=== PATIENT | male | born 1980 | race Caucasian/White ===

== ENCOUNTER 2017-12-02 22:28 | Inpatient (IN) | payer BC, OTHER ==
[~2017-12-02] VITALS: Ht 193 cm; Wt 93.0 kg
--- NOTE | ~2017-12-02 | H ---
[facility] [place] [address] HISTORY AND PHYSICAL Name: JUAN GARCIA Reanna Room #: 444-P ADM IN M.R.#: [id number] Admission: 12/03/17 Attend Phys: Eleno Acevedo MD Discharge: Date of : 82 Report #: [id number] THIS REPORT FOR: //name// CC: FAM unknown Eleno Acevedo DATE OF SERVICE: 12/03/2017 ATTENDING PHYSICIAN: Dr. Grace. PRIMARY CARE PHYSICIAN: Kelly Peraza. CHIEF COMPLAINT: Abdominal pain. HISTORY OF PRESENT ILLNESS: The patient is a 37-year-old male who initially presented to [facility] with abdominal pain. He states the pain started Sunday night. He said he had difficulty sleeping throughout the night because of some epigastric pain. Prior to that, he had eaten, had a shrimp boil and had some corn, potatoes and sausage. He says the pain persisted throughout the night and Sunday morning and progressively got worse throughout the day. He did try to eat a few times throughout the day on Sunday, but it would cause increasing pain. The pain started in the epigastric area, but this has started radiating around to his right flank area. He did have some nausea, but denies any vomiting, denies any fevers or chills, denies diarrhea. He had a normal bowel movement yesterday. He has had similar episodes with pancreatitis in the past. He states he was told previously that his pancreatitis was related to his diabetes. He was initially evaluated at [facility] and had a small mass noted on his pancreas, so he was transferred here for further GI evaluation. PAST MEDICAL HISTORY: Hypertension, diabetes, reflex sympathetic dystrophy due to a crush injury in the right lower extremity. PAST SURGICAL HISTORY: Right foot repair after a crush injury. ALLERGIES: DILAUDID CAUSES ITCHING AND RASH; MORPHINE NAUSEA AND VOMITING; PENICILLIN, UNKNOWN REACTION; ZOLOFT CAUSES INCREASED BLOOD SUGAR; AND NOVOLOG AND HUMALOG INSULIN CAUSE SHORTNESS OF AIR AND . HOME MEDICATIONS: Benadryl p.r.n., losartan 25 mg p.o. daily, tramadol 50-100 mg q. 6-8 hours p.r.n. pain, Tylenol p.r.n., Lantus insulin 10-12 units t.i.d., and Apidra insulin 10-12 units t.i.d. SOCIAL HISTORY: The patient denies any tobacco, alcohol or drug use. He lives with his girlfriend. FAMILY HISTORY: His father is alive with prostate cancer. [place] [address] HISTORY AND PHYSICAL Name: JUAN GARCIA Room #: 444-P [facility] IN M.R.#: [id number] Admission: 12/03/17 Attend Phys: Eleno Acevedo MD Discharge: Date of : 82 Report #: [id number] and healthy. There is no diabetes in the family. REVIEW OF SYSTEMS: Twelve point review of systems was reviewed with the patient. Otherwise negative unless stated in the HPI. PHYSICAL EXAMINATION: GENERAL: The patient is an alert male, in no acute distress. VITAL SIGNS: Temperature is 36.4, heart rate 70, respirations 16 and blood pressure 104/64, oxygen 98% on room air. HEENT: PERRLA. Sclerae is nonicteric. Oral mucosa is pink and moist. NECK: Supple, no JVD noted. CARDIAC: Normal S1, S2. No murmurs, rubs or gallops. RESPIRATORY: Breath sounds are clear bilaterally. No wheezing or rhonchi. Breathing is nonlabored. ABDOMEN: Soft and nondistended. He is tender in the epigastric area as well as right flank. Bowel sounds are positive. VASCULAR: No edema noted. Pedal pulses are 2+. NEUROLOGIC: The patient is alert and oriented x 3. Speech is clear. He is moving all extremities equally. No focal neuro deficits noted. SKIN: Intact. No rashes or lesions. LABORATORY DATA: Blood work done at [place] showed a WBC of 8.48, hemoglobin of 15.3, platelets 306. Sodium 139, potassium 3.7, BUN 17, creatinine 1.2, glucose is 267. LFTs within normal limits. Magnesium 1.9, lactate 0.7. Alcohol level is negative. Lipase was 1244. UA showed 2+ glucose, but negative for ketones, negative leukocyte esterase and wbc's. CT of the abdomen there showed no acute pancreatitis. There was an ill-defined 2 cm area of decreased density in the pancreas head and a mass cannot be ruled out. There is also a 3-cm upper pole cyst in the right renal cortical. ASSESSMENT AND PLAN: 1. Pancreatitis. The patient will be kept n.p.o. Start IV fluids and continue with pain control. Check triglyceride level. The patient denies any alcohol use. Repeat lipase level. 2. Pancreatic mass. Malignancy cannot be completely ruled out. We will go ahead and consult GI for further evaluation. This lesion was not seen on CT of the abdomen done here in 2011. 3. Diabetes. Check a hemoglobin A1c. If blood sugar is elevated, unfortunately he cannot have any Humalog or NovoLog insulin. We will hold his Lantus insulin since he is n.p.o. He states his girlfriend will be able to bring his Apidra insulin from home and we will use that as a sliding scale and follow Accu-Cheks. 4. Hypertension. Losartan will be held while he is n.p.o. We will add hydralazine p.r.n. 5. Deep venous thrombosis prophylaxis. Place sequential compression devices. [facility] [address] [address] HISTORY AND PHYSICAL Name: JUAN GARCIA Room #: 444-P [facility] IN ..#: [id number] Admission: 12/03/17 Attend Phys: Eleno Acevedo MD Discharge: Date of : 82 Report #: [id number] We will continue to follow the patient closely throughout the hospitalization and make changes based on clinical status. <ELECTRONICALLY SIGNED> By: ELIZABETH Bruno 12/03/17 [id number] ELIZABETH Bruno /nt
[~2017-12-02 22:28] MED LIST: ACETAMINOPHEN325 M1 PO; APIDRA SUBQ; BENADRYL25 MG PO; LANTUS SUBQ; NAPROSYN500 MG PO; NOHOMEMEDICATIONS; ULTRAM 50MG TAB50 MG PO; ZPAK PO; [UNRECOGNIZED DRUG - OTHER] PO
[2017-12-03] MEDS ORDERED: COZAAR 25 MG TA25 M1 PO (00:42)
[2017-12-03 03:53] VITALS: BP 104/64
[2017-12-03 07:28] LABS: HEMATOCRIT 38.3 % (42.0-52.0); HEMOGLOBIN 13.4 gm/dL (14.0-18.0); MCH 31.1 pg (26.0-34.0); MCHC 34.9 g/dL (28.0-37.0); MCV 89.2 fL (80.0-100.0); RBC 4.3 mil/uL (4.50-6.00); RDW 12.3 % (10.5-14.5)
[2017-12-03 07:49] LABS: ALBUMIN 3.3 g/dL (3.4-5.0); ANION GAP 6 mmol/L (7-16); BUN 19 mg/dL (7-18); CALCIUM 8.2 mg/dL (8.5-10.1); CHLORIDE 105 mmol/L (98-107); CHOLESTEROL 120 mg/dL (<200); CO2 28 mmol/L (21-32); CREATININE 0.9 mg/dL (0.7-1.3); GLUCOSE 276 mg/dL (74-106); HDL CHOLESTEROL 31 mg/dL (>40); LDL CHOLESTEROL 47 mg/dL (<100); LIPASE 854 U/L (73-393); POTASSIUM 3.9 mmol/L (3.5-5.1); SGOT 14 U/L (15-37); SGPT 20 U/L (30-65); SODIUM 139 mmol/L (136-145); TC:HDL 3.9 Ratio (Not establshd); TOTAL BILIRUBIN 0.3 mg/dL (<0.1-1.0); TRIGLYCERIDE 211 mg/dL (<150); VLDL 42 mg/dL (<40)
[2017-12-03 08:00] VITALS: BP 120/80
[2017-12-03 16:00] VITALS: BP 128/84
[2017-12-03 16:07] LABS: GLYCOHEMOGLOBIN (HGB A1C) 9.9 % (4.8-5.6)
[2017-12-03 19:58] VITALS: BP 127/76
[2017-12-04 03:04] VITALS: BP 128/83
[2017-12-04 07:10] LABS: HEMATOCRIT 38.1 % (42.0-52.0); HEMOGLOBIN 13.2 gm/dL (14.0-18.0); MCH 30.7 pg (26.0-34.0); MCHC 34.7 g/dL (28.0-37.0); MCV 88.4 fL (80.0-100.0); RBC 4.31 mil/uL (4.50-6.00); RDW 12.1 % (10.5-14.5); WBC 4.9 thou/uL (4.0-11.0)
[2017-12-04 07:20] LABS: CALCIUM 8.5 mg/dL (8.5-10.1); MAGNESIUM 1.7 mg/dL (1.8-2.4); POTASSIUM 4.1 mmol/L (3.5-5.1)
[2017-12-04 08:00] VITALS: BP 130/85
[2017-12-04 15:31] VITALS: BP 130/85
== END 2017-12-04 15:45 | disposition home or self-care (01) | DRG 440 ==
LOC: 4S 22:28 → ENTRNSPT 12-04 15:44 → 4S 12-04 15:45 → EDTRNSPTSTS 12-04 15:47
PROVIDERS: Internal Medicine; Nurse Practitioner Acute Care
DX: K85.90 Acute pancreatitis without necrosis or infection, unspecified (principal); I10 Essential (primary) hypertension; E11.9 Type 2 diabetes mellitus without complications; Z88.8 Allergy status to other drugs, medicaments and biological substances; Z88.0 Allergy status to penicillin; Z88.5 Allergy status to narcotic agent; Z91.011 Allergy to milk products
CPT/HCPCS: 10102